=== PATIENT | female | born 1965 | race Caucasian/White ===

== ENCOUNTER 2016-07-22 19:39 | Emergency (ER) | payer BC ==
--- NOTE | 2016-07-22 21:35 | EDDOCDS ---
Nurse's Notes [facility] Name: Beatrice Blanco Age: 51 yrs Sex: Female : 1965 Arrival Date: 07/22/2016 Time: 19:39 Bed Triage 1 Private MD: NO PRIMARY PHYSICIAN, . Diagnosis: Cutaneous abscess of foot-left small toe Presentation: 07/22 19:51 Presenting complaint: Patient states: has swollen and reddened 5th toe on left foot. jo3 went to and they suggested ED for antibiotics. Adult Sepsis Screening: The patient does not have new or worsening altered mentation. Patient's respiratory rate is less than 22. Systolic blood pressure is greater than 100. Patient has a qSOFA score of 0- Negative Sepsis Screen. Suicide/Homicide risk assessment- the patient denies having any suicidal and/or homicidal ideations and does not present with any other emotional, behavioral or mental health complaints. 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 Transition of care: patient was not received from another setting of care. 19:51 Acuity: CAITLYN Level 3 jo3 19:51 Method Of Arrival: Walkin/Carried/Asstd jo3 Triage Assessment: 19:53 General: Appears in no apparent distress, comfortable, Behavior is appropriate for age, jo3 cooperative, pleasant. Pain: Pain currently is 4 out of 10 on a pain scale. HIV screening NA for this visit Offered previously. Neurological: Level of Consciousness is awake, alert, Oriented to person, place, time. 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 multivitamin Oral tab 1 tab daily - PMHx: none; - PSHx: right foot surgery; - Social history: Smoking status: Patient states was never smoker of tobacco. No barriers to communication noted, The patient speaks fluent Indonesian, Speaks appropriately for age. - Family history: Not pertinent. - : The pt / caregiver states he / she is not on anticoagulants. Home medication list is obtained from the patient. - Exposure Risk Screening:: None identified. Screenin:32 Screening information is obtained from the patient. Fall risk: No risks identified. jo3 Assistance ADL's: requires no assistance with activities of daily living. Abuse/DV Screen: The patient / caregiver reports he/she is: not in a situation that causes fear, pain or injury. Nutritional screening: No deficits noted. Advance Directives: There is no active DNR order. home support is adequate. Assessment: 21:32 General: Appears in no apparent distress, comfortable, Behavior is appropriate for age, jo3 cooperative, pleasant. Neurological: Level of Consciousness is awake, alert, Oriented to person, place, time. Respiratory: Airway is patent Respiratory effort is even, unlabored. Derm: Skin is pink, warm & dry. Vital Signs: 19:40 BP 132 / 84; Pulse 71; Resp 18 S; Temp 98.2(O); Pulse Ox 98% on R/A; Weight 48.08 kg gr2 (R); Height 5 ft. 0 in. (152.40 cm) (R); Pain 3/10; 21:32 BP 126 / 78; Pulse 68; Resp 16; Temp 98.2(TE); Pulse Ox 98% on R/A; jo3 19:40 Body Mass Index 20.70 (48.08 kg, 152.40 cm) gr2 Vitals: 19:40 Log In Time: July 22, 2016 at 19:40. gr2 ED Course: 19:40 Patient visited by Price Acosta. gr2 19:40 NO PRIMARY PHYSICIAN, . is Private Physician. gr2 19:40 Patient moved to Waiting gr2 19:42 Patient visited by Price Acosta. gr2 19:42 Patient moved to Pre RCE gr2 19:52 Triage Initiated jo3 19:54 Patient visited by Rose Carpenter RN. jo3 20:36 Patient moved to Triage 1 jmv 20:46 Malachi Guzman PA-C is PHCP. ar2 20:46 Earl Baron DO is Attending Physician. ar2 21:01 Patient visited by Malachi Guzman PA-C. ar2 21:17 Malachi Carter DO is Referral Physician. ar2 21:32 [facility] [place] was [place] into [employer] and attached to record. gjb 21:32 The patient / caregiver is instructed regarding the plan of care and ED course. jo3 21:32 No IV's were initiated during this patient's visit. No procedures done that require jo3 assistance. Dressings: 4X4s X 1;. Order Results: There are currently no results for this order. Outcome: 21:18 Discharge ordered by Provider. ar2 21:33 Discharge Assessment: Patient awake, alert and oriented x 3. No cognitive and/or jo3 functional deficits noted. Patient verbalized understanding of disposition instructions. patient administered narcotics - no. The following High Risk Discharge criteria are identified: None. Discharged to home ambulatory, with significant other. Condition: stable Condition: improved. No special radiology studies were completed. Property sent home with patient. 21:34 Patient left the ED. jo3 Signatures: Rose CarpenterRN RN jo3 Malachi Guzman, PANathan PANathan ar2 Price Acosta2 Jazmín Carcamo Jose, VAEN sarmiento MTDD
--- NOTE | 2016-07-22 21:35 | EDDOCDS ---
Physician Documentation [facility] Name: Beatrice Blanco Age: 51 yrs Sex: Female : 1965 Arrival Date: 07/22/2016 Time: 19:39 Bed Triage 1 Private MD: NO PRIMARY PHYSICIAN, . Disposition: 07/22/16 21:18 Discharged to Home/Self Care. Impression: Cutaneous abscess of foot - left small toe. - Condition is Stable. - Discharge Instructions: Abscess, Cellulitis. - Medication Reconciliation, Local Pharmacy Hours form. - Follow up: Malachi Carter DO; When: As needed; Reason: Recheck today's complaints. Follow up: Emergency Department; When: As needed; Reason: Fever > 102F, Worsening of conditions. - Problem is new. - Symptoms are unchanged. - Notes: soak in epsom salts 3-4 times per day. take antibiotic as previously prescribed. keep dressing on while healing. keep clean, dry and covered. activity as tolerated Historical: - Allergies: IODINEIODINE CONTAINING; - Home Meds: 1. multivitamin Oral tab 1 tab daily - PMHx: none; - PSHx: right foot surgery; - Social history: Smoking status: Patient states was never smoker of tobacco. No barriers to communication noted, The patient speaks fluent Croatian, Speaks appropriately for age. - Family history: Not pertinent. - : The pt / caregiver states he / she is not on anticoagulants. Home medication list is obtained from the patient. - Exposure Risk Screening:: None identified. 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 0 in. (152.40 cm) (R); Pain 3/10; 21:32 BP 126 / 78; Pulse 68; Resp 16; Temp 98.2(TE); Pulse Ox 98% on R/A; jo3 19:40 Body Mass Index 20.70 (48.08 kg, 152.40 cm) gr2 MDM: 21:17 Dressing ordered. ar2 21:32 [facility] Payment Agreement was scanned into [employer] and attached to record. candice 21:32 Financial registration complete. candice Signatures: Rose Carpenter RN RN [email or web address] Malachi Guzman PA-C PA-C ar2 Beck, Gabriela gjb The chart was reviewed and I authenticate all verbal orders and agree with the evaluation and treatment provided.Attachments: 21:32 [facility] Payment Agreement candice MTDD
--- NOTE | 2016-07-24 22:35 | EDDOCDS ---
Physician Documentation [facility] Name: Beatrice Blanco Age: 51 yrs Sex: Female : 1965 Arrival Date: 07/22/2016 Time: 19:39 Bed Triage 1 Private MD: NO PRIMARY PHYSICIAN, . Disposition: 07/22/16 21:18 Discharged to Home/Self Care. Impression: Cutaneous abscess of foot - left small toe. - Condition is Stable. - Discharge Instructions: Abscess, Cellulitis. - Medication Reconciliation, Local Pharmacy Hours form. - Follow up: Malachi Carter DO; When: As needed; Reason: Recheck today's complaints. Follow up: Emergency Department; When: As needed; Reason: Fever > 102F, Worsening of conditions. - Problem is new. - Symptoms are unchanged. - Notes: soak in epsom salts 3-4 times per day. take antibiotic as previously prescribed. keep dressing on while healing. keep clean, dry and covered. activity as tolerated Historical: - Allergies: IODINEIODINE CONTAINING; - Home Meds: 1. multivitamin Oral tab 1 tab daily - PMHx: none; - PSHx: right foot surgery; - Social history: Smoking status: Patient states was never smoker of tobacco. No barriers to communication noted, The patient speaks fluent Welsh, Speaks appropriately for age. - Family history: Not pertinent. - : The pt / caregiver states he / she is not on anticoagulants. Home medication list is obtained from the patient. - Exposure Risk Screening:: None identified. 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 0 in. (152.40 cm) (R); Pain 3/10; 21:32 BP 126 / 78; Pulse 68; Resp 16; Temp 98.2(TE); Pulse Ox 98% on R/A; jo3 19:40 Body Mass Index 20.70 (48.08 kg, 152.40 cm) gr2 MDM: 21:17 Dressing ordered. ar2 21:32 [facility] Payment Agreement was scanned into [employer] and attached to record. banner :32 Financial registration complete. b 07/23 12:20 T-Sheet-- Draft Copy was scanned into [employer] and attached to record. gb Signatures: Dhara Rodriguez, Reg Reg Rose Alexandra,RN RN jo3 Malachi Guzman PA-C PA-C ar2 Beck, Gabriela banner The chart was reviewed and I authenticate all verbal orders and agree with the evaluation and treatment provided.Attachments: 07/22 21:32 [facility] [place] 07/23 12:20 T-Sheet-- Draft Copy gb Chart Complete MTDD
--- NOTE | 2016-07-24 22:35 | EDDOCDS ---
Nurse's Notes [facility] Name: Beatrice Blanco Age: 51 yrs Sex: Female : 1965 Arrival Date: 07/22/2016 Time: 19:39 Bed Triage 1 Private MD: NO PRIMARY PHYSICIAN, . Diagnosis: Cutaneous abscess of foot-left small toe Presentation: 07/22 19:51 Presenting complaint: Patient states: has swollen and reddened 5th toe on left foot. jo3 went to and they suggested ED for antibiotics. Adult Sepsis Screening: The patient does not have new or worsening altered mentation. Patient's respiratory rate is less than 22. Systolic blood pressure is greater than 100. Patient has a qSOFA score of 0- Negative Sepsis Screen. Suicide/Homicide risk assessment- the patient denies having any suicidal and/or homicidal ideations and does not present with any other emotional, behavioral or mental health complaints. 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 Transition of care: patient was not received from another setting of care. 19:51 Acuity: CAITLYN Level 3 jo3 19:51 Method Of Arrival: Walkin/Carried/Asstd jo3 Triage Assessment: 19:53 General: Appears in no apparent distress, comfortable, Behavior is appropriate for age, jo3 cooperative, pleasant. Pain: Pain currently is 4 out of 10 on a pain scale. HIV screening NA for this visit Offered previously. Neurological: Level of Consciousness is awake, alert, Oriented to person, place, time. 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 multivitamin Oral tab 1 tab daily - PMHx: none; - PSHx: right foot surgery; - Social history: Smoking status: Patient states was never smoker of tobacco. No barriers to communication noted, The patient speaks fluent Lithuanian, Speaks appropriately for age. - Family history: Not pertinent. - : The pt / caregiver states he / she is not on anticoagulants. Home medication list is obtained from the patient. - Exposure Risk Screening:: None identified. Screenin:32 Screening information is obtained from the patient. Fall risk: No risks identified. jo3 Assistance ADL's: requires no assistance with activities of daily living. Abuse/DV Screen: The patient / caregiver reports he/she is: not in a situation that causes fear, pain or injury. Nutritional screening: No deficits noted. Advance Directives: There is no active DNR order. home support is adequate. Assessment: 21:32 General: Appears in no apparent distress, comfortable, Behavior is appropriate for age, jo3 cooperative, pleasant. Neurological: Level of Consciousness is awake, alert, Oriented to person, place, time. Respiratory: Airway is patent Respiratory effort is even, unlabored. Derm: Skin is pink, warm & dry. Vital Signs: 19:40 BP 132 / 84; Pulse 71; Resp 18 S; Temp 98.2(O); Pulse Ox 98% on R/A; Weight 48.08 kg gr2 (R); Height 5 ft. 0 in. (152.40 cm) (R); Pain 3/10; 21:32 BP 126 / 78; Pulse 68; Resp 16; Temp 98.2(TE); Pulse Ox 98% on R/A; jo3 19:40 Body Mass Index 20.70 (48.08 kg, 152.40 cm) gr2 Vitals: 19:40 Log In Time: July 22, 2016 at 19:40. gr2 ED Course: 19:40 Patient visited by Price Acosta. gr2 19:40 NO PRIMARY PHYSICIAN, . is Private Physician. gr2 19:40 Patient moved to Waiting gr2 19:42 Patient visited by Price Acosta. gr2 19:42 Patient moved to Pre RCE gr2 19:52 Triage Initiated jo3 19:54 Patient visited by Rose Carpenter RN. jo3 20:36 Patient moved to Triage 1 jmv 20:46 Malachi Guzman PA-C is PHCP. ar2 20:46 Earl Baron DO is Attending Physician. ar2 21:01 Patient visited by Malachi Guzman PA-C. ar2 21:17 Malachi Carter DO is Referral Physician. ar2 21:32 [facility] [place] Payment Agreement was scanned into [employer] and attached to record. gjb 21:32 The patient / caregiver is instructed regarding the plan of care and ED course. jo3 21:32 No IV's were initiated during this patient's visit. No procedures done that require jo3 assistance. Dressings: 4X4s X 1;. 07/23 12:20 T-Sheet-- Draft Copy was scanned into [employer] and attached to record. gb Order Results: There are currently no results for this order. Outcome: 07/22 21:18 Discharge ordered by Provider. ar2 21:33 Discharge Assessment: Patient awake, alert and oriented x 3. No cognitive and/or jo3 functional deficits noted. Patient verbalized understanding of disposition instructions. patient administered narcotics - no. The following High Risk Discharge criteria are identified: None. Discharged to home ambulatory, with significant other. Condition: stable Condition: improved. No special radiology studies were completed. Property sent home with patient. 21:34 Patient left the ED. jo3 Signatures: Dhara Rodriguez, Reg Reg Rose Alexandra RN RN jo3 Malachi Guzman, PANathan PANathan ar2 Price Acosta2 Jazmín Carcamo Jose, [facility] jmv Chart Complete MTDTod
--- NOTE | 2016-07-24 22:35 | EDDOCDS ---
Physician Documentation [facility] Name: Beatrice Blanco Age: 51 yrs Sex: Female : 1965 Arrival Date: 07/22/2016 Time: 19:39 Bed Triage 1 Private MD: NO PRIMARY PHYSICIAN, . Disposition: 07/22/16 21:18 Discharged to Home/Self Care. Impression: Cutaneous abscess of foot - left small toe. - Condition is Stable. - Discharge Instructions: Abscess, Cellulitis. - Medication Reconciliation, Local Pharmacy Hours form. - Follow up: Malachi Carter DO; When: As needed; Reason: Recheck today's complaints. Follow up: Emergency Department; When: As needed; Reason: Fever > 102F, Worsening of conditions. - Problem is new. - Symptoms are unchanged. - Notes: soak in epsom salts 3-4 times per day. take antibiotic as previously prescribed. keep dressing on while healing. keep clean, dry and covered. activity as tolerated Historical: - Allergies: IODINEIODINE CONTAINING; - Home Meds: 1. multivitamin Oral tab 1 tab daily - PMHx: none; - PSHx: right foot surgery; - Social history: Smoking status: Patient states was never smoker of tobacco. No barriers to communication noted, The patient speaks fluent Welsh, Speaks appropriately for age. - Family history: Not pertinent. - : The pt / caregiver states he / she is not on anticoagulants. Home medication list is obtained from the patient. - Exposure Risk Screening:: None identified. 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 0 in. (152.40 cm) (R); Pain 3/10; 21:32 BP 126 / 78; Pulse 68; Resp 16; Temp 98.2(TE); Pulse Ox 98% on R/A; jo3 19:40 Body Mass Index 20.70 (48.08 kg, 152.40 cm) gr2 MDM: 21:17 Dressing ordered. ar2 21:32 [facility] Payment Agreement was scanned into [employer] and attached to record. [facility] [place]32 Financial registration complete. b 07/23 12:20 T-Sheet-- Draft Copy was scanned into [employer] and attached to record. gb Signatures: Dhara Rodriguez, Reg Reg Rose Alexandra,RN RN jo3 Malachi Guzman PA-C PA-C ar2 Beck, Gabriela [facility] The chart was reviewed and I authenticate all verbal orders and agree with the evaluation and treatment provided.Attachments: 07/22 21:32 [facility] [place] [facility] 07/23 12:20 T-Sheet-- Draft Copy gb Chart Complete MTDD
== END 2016-07-22 21:34 | disposition home or self-care (01) ==
LOC: M ED 19:39
DX: L02.612 Cutaneous abscess of left foot (principal); Z79.899 Other long term (current) drug therapy; Z88.8 Allergy status to other drugs, medicaments and biological substances

== ENCOUNTER → 2016-07-22 | Outpatient (REF) | payer BC | LOC: M LAB REF 16:11 | PROVIDERS: ATTEND Physician Assistant | DX: L02.612 Cutaneous abscess of left foot (principal) ==

== ENCOUNTER → 2018-08-18 | Outpatient (CLI) | payer BC ==
--- NOTE | 2018-08-18 15:05 | REP ---
Clinical: Acute bronchitis . Comparison: 12/16/2015 . Technique: PA and lateral. Findings: The mediastinum and cardiac silhouette are normal. The lung bryan are clear and without acute consolidation, effusion, or pneumothorax. The skeletal structures are intact and normal. Impression: 1. No acute cardiopulmonary process. Electronically Signed by Duke Wing MD 08/18/2018 02:57 P
== END ==
LOC: M CLY 14:34
PROVIDERS: ATTEND Nurse Practitioner Family
DX: J40 Bronchitis, not specified as acute or chronic (principal)

== ENCOUNTER → 2019-01-09 | Outpatient (REF) | payer BC ==
[2019-01-09 17:10] LABS: ALBUMIN 4.1 GM/DL (3.2-5.2); ALT/SGPT 27 U/L (12-78); BASO # 0.1 10^3/uL (0.0-0.2); BASO % 0.8 % (0.0-1.0); BILIRUBIN,TOTAL 0.6 MG/DL (0.2-1.0); BLOOD UREA NITROGEN 11 MG/DL (7-18); CALCIUM LEVEL 9.2 MG/DL (8.5-10.1); CARBON DIOXIDE LEVEL 28 MEQ/L (21-32); CHLORIDE LEVEL 109 MEQ/L (98-107); CREATININE FOR GFR 0.84 MG/DL (0.55-1.30); EOS # 0.1 10^3/uL (0.0-0.50); EOS % 0.7 % (0.0-3.0); GLOMERULAR FILTRATION RATE > 60.0 (>51); GLUCOSE, FASTING 106 MG/DL (70-100); HEMATOCRIT 46.1 % (36.0-47.0); HEMOGLOBIN 15.2 g/dl (12.0-15.5); LYMPH % 24.1 % (24.0-44.0); MEAN CORPUSCULAR HEMOGLOBIN 30.5 pg (27.0-33.0); MEAN CORPUSCULAR VOLUME 92.6 fl (80.0-96.0); MONO # 0.6 10^3/uL (0.0-0.8); MONO % 7.1 % (0.0-5.0); NEUTROPHILS # 5.6 10^3/uL (1.8-7.7); NEUTROPHILS % 67.2 % (36.0-66.0); PLATELET COUNT, AUTOMATED 274 10^3/uL (150-450); POTASSIUM SERUM 4.4 MEQ/L (3.5-5.1); RED BLOOD COUNT 4.98 10^6/uL (4.00-5.40); SODIUM LEVEL 141 MEQ/L (136-145); WHITE BLOOD COUNT 8.4 10^3/uL (4.0-10.0)
== END ==
LOC: M SFHCCLAY 10:46
PROVIDERS: ATTEND Family Medicine
DX: R30.0 Dysuria (principal); R10.2 Pelvic and perineal pain

== ENCOUNTER → 2019-01-09 | Outpatient (REF) | payer BC | LOC: M SFHCCLAY 16:16 | PROVIDERS: ATTEND Family Medicine | DX: R30.0 Dysuria (principal) ==

== ENCOUNTER 2020-05-28 12:38 | Emergency (ER) | payer BC ==
[~2020-05-28] VITALS: Ht 152.4 cm; Wt 51.1 kg
[2020-05-28] MEDS ORDERED: MULT1TAB16 PO (12:51)
[2020-05-28] MEDS ORDERED: VITA500045 PO (12:51)
[2020-05-28] MEDS ORDERED: VITA100T59 PO (12:51)
[2020-05-28] MEDS ORDERED: OXYMETAZOLINE 0.05% NASAL SPRAY (AFRIN) STA (14:46)
[2020-05-28 15:11] LABS: BASO # 0.1 10^3/uL (0.0-0.2); BASO % 0.7 % (0.0-1.0); EOS # 0.1 10^3/uL (0.0-0.5); EOS % 0.8 % (0.0-3.0); HEMATOCRIT 45.4 % (36.0-47.0); HEMOGLOBIN 14.5 g/dl (12.0-15.5); LYMPH % 28.1 % (24.0-44.0); MEAN CORPUSCULAR HEMOGLOBIN 28.9 pg (27.0-33.0); MEAN CORPUSCULAR HGB CONC 31.9 g/dl (32.0-36.5); MEAN CORPUSCULAR VOLUME 90.6 fl (80.0-96.0); MONO # 0.5 10^3/uL (0.0-0.8); MONO % 6.3 % (0.0-5.0); NEUTROPHILS # 4.6 10^3/uL (1.5-8.5); PLATELET COUNT, AUTOMATED 290 10^3/uL (150-450); RED BLOOD COUNT 5.01 10^6/uL (4.00-5.40); WHITE BLOOD COUNT 7.2 10^3/uL (4.0-10.0)
[2020-05-28 15:59] LABS: INR 0.92; PROTHROMBIN TIME 12.6 SECONDS (12.5-14.3)
[2020-05-28 16:00] LABS: PARTIAL THROMBOPLASTIN TIME 25.8 SECONDS (24.2-38.5)
[2020-05-28 16:12] VITALS: BP 124/70
== END 2020-05-28 16:17 | disposition home or self-care (01) ==
LOC: M ED 12:38
DX: R04.0 Epistaxis (principal); R00.0 Tachycardia, unspecified

== ENCOUNTER → 2020-06-20 | Outpatient (REF) | payer BC ==
[~2020-06-20] MED LIST: MULT1TAB16 PO; VITA100T59 PO; VITA500045 PO
[2020-06-20 12:05] LABS: BASO # 0.1 10^3/uL (0.0-0.2); BASO % 1.4 % (0.0-1.0); EOS # 0.2 10^3/uL (0.0-0.5); EOS % 4.9 % (0.0-3.0); HEMATOCRIT 41.7 % (36.0-47.0); HEMOGLOBIN 13.1 g/dl (12.0-15.5); LYMPH # 2.1 10^3/uL (1.5-5.0); MEAN CORPUSCULAR HEMOGLOBIN 28.7 pg (27.0-33.0); MEAN CORPUSCULAR HGB CONC 31.4 g/dl (32.0-36.5); MEAN CORPUSCULAR VOLUME 91.4 fl (80.0-96.0); MONO # 0.4 10^3/uL (0.0-0.8); MONO % 8.8 % (0.0-5.0); NEUTROPHILS # 2.1 10^3/uL (1.5-8.5); NEUTROPHILS % 42.9 % (36.0-66.0); PLATELET COUNT, AUTOMATED 293 10^3/uL (150-450); RED BLOOD COUNT 4.56 10^6/uL (4.00-5.40); WHITE BLOOD COUNT 4.9 10^3/uL (4.0-10.0)
[2020-06-20 12:30] LABS: ALBUMIN 3.9 GM/DL (3.2-5.2); ALT/SGPT 20 U/L (12-78); BILIRUBIN,TOTAL 0.7 MG/DL (0.2-1.0); BLOOD UREA NITROGEN 14 MG/DL (7-18); CALCIUM LEVEL 9.5 MG/DL (8.5-10.1); CARBON DIOXIDE LEVEL 33 MEQ/L (21-32); CHLORIDE LEVEL 107 MEQ/L (98-107); CHOLESTEROL LEVEL 227 MG/DL (<200); CHOLESTEROL RISK RATIO 3.026 (<5); CREATININE FOR GFR 0.79 MG/DL (0.55-1.30); GLOMERULAR FILTRATION RATE > 60.0 (>51); GLUCOSE, FASTING 104 MG/DL (70-100); HDL CHOLESTEROL 75 MG/DL (>40); LDL CHOLESTEROL 143 MG/DL (<100); NON-HDL-C 152 MG/DL; POTASSIUM SERUM 4.5 MEQ/L (3.5-5.1); RHEUMATOID FACTOR QUANT < 10.0 IU/ML (<15.0); SODIUM LEVEL 141 MEQ/L (136-145); TOTAL PROTEIN 6.6 GM/DL (6.4-8.2); TRIGLYCERIDES LEVEL 45 MG/DL (<150)
[2020-06-20 12:33] LABS: ERYTHROCYTE SEDIMENTATION RATE 6 mm/hr (0-30)
[2020-06-25 00:10] LABS: ANA (HEP2) Negative (.); CYCLIC CITRULLINATED PEPTIDE 7 units (0-19)
== END ==
LOC: M SFHCCLAY 07:31
PROVIDERS: ATTEND Family Medicine
DX: R04.0 Epistaxis (principal); M25.50 Pain in unspecified joint; Z13.0 Encounter for screening for diseases of the blood and blood-forming organs and certain disorders involving the immune mechanism; Z13.220 Encounter for screening for lipoid disorders

== ENCOUNTER → 2021-07-17 | Outpatient (REF) | payer OTHER ==
[2021-07-18 11:30] LABS: BASO # 0.1 10^3/uL (0.0-0.2); BASO % 0.9 % (0.0-1.0); EOS # 0.1 10^3/uL (0.0-0.5); EOS % 1.5 % (0.0-3.0); HEMATOCRIT 42.7 % (36.0-47.0); HEMOGLOBIN 13.8 g/dl (12.0-15.5); LYMPH # 2.3 10^3/uL (1.5-5.0); MEAN CORPUSCULAR HGB CONC 32.3 g/dl (32.0-36.5); MEAN CORPUSCULAR VOLUME 89.7 fl (80.0-96.0); MONO # 0.5 10^3/uL (0.0-0.8); MONO % 7.3 % (2.0-8.0); NEUTROPHILS # 4.4 10^3/uL (1.5-8.5); NEUTROPHILS % 59.2 % (36.0-66.0); PLATELET COUNT, AUTOMATED 306 10^3/uL (150-450); RED BLOOD COUNT 4.76 10^6/uL (4.00-5.40); WHITE BLOOD COUNT 7.4 10^3/uL (4.0-10.0)
[2021-07-18 12:00] LABS: ERYTHROCYTE SEDIMENTATION RATE 5 mm/hr (0-30)
[2021-07-18 12:06] LABS: ALBUMIN 3.8 GM/DL (3.2-5.2); ALT/SGPT 30 U/L (12-78); BILIRUBIN,TOTAL 0.4 MG/DL (0.2-1.0); BLOOD UREA NITROGEN 10 MG/DL (7-18); CALCIUM LEVEL 9.7 MG/DL (8.5-10.1); CARBON DIOXIDE LEVEL 31 MEQ/L (21-32); CHLORIDE LEVEL 106 MEQ/L (98-107); CHOLESTEROL LEVEL 208 MG/DL (<200); CHOLESTEROL RISK RATIO 2.849 (<5); CREATININE FOR GFR 0.71 MG/DL (0.55-1.30); GLOMERULAR FILTRATION RATE > 60.0 (>51); GLUCOSE, FASTING 121 MG/DL (70-100); HDL CHOLESTEROL 73 MG/DL (>40); IRON (FE) 101 UG/DL (50-170); LDL CHOLESTEROL 117 MG/DL (<100); NON-HDL-C 135 MG/DL; POTASSIUM SERUM 5.4 MEQ/L (3.5-5.1); RHEUMATOID FACTOR QUANT < 10.0 IU/ML (<15.0); SODIUM LEVEL 140 MEQ/L (136-145); TOTAL PROTEIN 6.8 GM/DL (6.4-8.2); TRIGLYCERIDES LEVEL 92 MG/DL (<150); URIC ACID 3.6 MG/DL (2.6-6.0)
[2021-07-21 23:14] LABS: ANA (HEP2) Negative (.); CYCLIC CITRULLINATED PEPTIDE 6 units (0-19)
== END ==
LOC: M SFHCCLAY 14:07
PROVIDERS: ATTEND Family Medicine
DX: M25.50 Pain in unspecified joint (principal); Z13.220 Encounter for screening for lipoid disorders; M79.642 Pain in left hand; M79.641 Pain in right hand; Z13.29 Encounter for screening for other suspected endocrine disorder; Z13.0 Encounter for screening for diseases of the blood and blood-forming organs and certain disorders involving the immune mechanism

== ENCOUNTER → 2021-07-17 | Outpatient (CLI) | payer OTHER | LOC: M CLY 14:25 | PROVIDERS: ATTEND Family Medicine | DX: M79.642 Pain in left hand (principal); M79.641 Pain in right hand ==

== ENCOUNTER → 2022-09-22 | Outpatient (REF) | payer OTHER ==
[2022-09-22 12:10] LABS: HEMATOCRIT 44.1 % (36.0-47.0); HEMOGLOBIN 14.3 g/dl (12.0-15.5); MEAN CORPUSCULAR HEMOGLOBIN 29.2 pg (27.0-33.0); MEAN CORPUSCULAR HGB CONC 32.4 g/dl (32.0-36.5); MEAN CORPUSCULAR VOLUME 90.2 fl (80.0-96.0); PLATELET COUNT, AUTOMATED 332 10^3/uL (150-450); RED BLOOD COUNT 4.89 10^6/uL (4.00-5.40); WHITE BLOOD COUNT 5.8 10^3/uL (4.0-10.0)
[2022-09-22 12:13] LABS: ALBUMIN 4.1 G/DL (3.2-5.2); ALKALINE PHOSPHATASE 55 U/L (46-116); ALT/SGPT 22 U/L (7.0-40); AST/SGOT 18 U/L (<34); BILIRUBIN,TOTAL 0.6 MG/DL (0.3-1.2); BLOOD UREA NITROGEN 12 MG/DL (9-23); CALCIUM LEVEL 9.5 MG/DL (8.5-10.1); CARBON DIOXIDE LEVEL 30 MMOL/L (20-31); CHLORIDE LEVEL 106 MMOL/L (98-107); CHOLESTEROL LEVEL 237 MG/DL (<200); CREATININE FOR GFR 0.68 MG/DL (0.55-1.30); GLOMERULAR FILTRATION RATE > 60.0 (>51); GLUCOSE, FASTING 106 MG/DL (60-100); POTASSIUM SERUM 4.7 MMOL/L (3.5-5.1); SODIUM LEVEL 140 MMOL/L (136-145); TOTAL PROTEIN 6.8 G/DL (5.7-8.2); TRIGLYCERIDES LEVEL 40 MG/DL (<150)
[2022-09-22 12:16] LABS: FREE T4 0.93 NG/DL (0.89-1.76); THYROID STIMULATING HORMONE 1.512 uIU/ML (0.55-4.78)
[2022-09-22 12:49] LABS: HEMOGLOBIN A1c 5.7 % (4.0-6.0)
== END ==
LOC: M SFHCCLAY 08:53
PROVIDERS: ATTEND Family Medicine
DX: R73.01 Impaired fasting glucose (principal); E78.00 Pure hypercholesterolemia, unspecified; F51.01 Primary insomnia

== ENCOUNTER → 2023-09-28 | Outpatient (REF) | payer OTHER ==
[2023-09-28 17:28] LABS: HEMATOCRIT 45.9 % (36.0-47.0); HEMOGLOBIN 15.1 g/dl (12.0-15.5); MEAN CORPUSCULAR HEMOGLOBIN 29.5 pg (27.0-33.0); MEAN CORPUSCULAR HGB CONC 32.9 g/dl (32.0-36.5); MEAN CORPUSCULAR VOLUME 89.6 fl (80.0-96.0); PLATELET COUNT, AUTOMATED 322 10^3/uL (150-450); RED BLOOD COUNT 5.12 10^6/uL (4.00-5.40); WHITE BLOOD COUNT 6.9 10^3/uL (4.0-10.0)
[2023-09-28 17:55] LABS: ALBUMIN 4.3 G/DL (3.2-5.2); ALKALINE PHOSPHATASE 61 U/L (46-116); ALT/SGPT 26 U/L (7.0-40); AST/SGOT 16 U/L (<34); BILIRUBIN,TOTAL 0.9 MG/DL (0.3-1.2); BLOOD UREA NITROGEN 16 MG/DL (9-23); CALCIUM LEVEL 9.5 MG/DL (8.5-10.1); CARBON DIOXIDE LEVEL 30 MMOL/L (20-31); CHLORIDE LEVEL 106 MMOL/L (98-107); CHOLESTEROL LEVEL 209 MG/DL (<200); CHOLESTEROL RISK RATIO 3.06 (<5); CREATININE FOR GFR 0.73 MG/DL (0.55-1.30); GLOMERULAR FILTRATION RATE > 60.0 (>51); GLUCOSE, FASTING 97 MG/DL (60-100); HDL CHOLESTEROL 68.1 MG/DL (>40); LDL CHOLESTEROL 128.1 MG/DL (<100); NON-HDL-C 140.9 MG/DL; POTASSIUM SERUM 4.8 MMOL/L (3.5-5.1); SODIUM LEVEL 139 MMOL/L (136-145); TOTAL PROTEIN 6.9 G/DL (5.7-8.2); TRIGLYCERIDES LEVEL 64 MG/DL (<150)
[2023-09-28 18:17] LABS: HEMOGLOBIN A1c 5.5 % (4.0-6.0)
== END ==
LOC: M SFHCCLAY 10:27
PROVIDERS: ATTEND Family Medicine
DX: R73.01 Impaired fasting glucose (principal); E78.00 Pure hypercholesterolemia, unspecified; M25.50 Pain in unspecified joint; Z83.49 Family history of other endocrine, nutritional and metabolic diseases

== ENCOUNTER → 2023-10-26 | Outpatient (CLI) | payer OTHER | LOC: M CARPUL 09:03 | PROVIDERS: ATTEND Family Medicine | DX: I49.1 Atrial premature depolarization (principal); R00.2 Palpitations ==